=== PATIENT | female | born 2000 | race Two or more races ===

== ENCOUNTER 2024-06-02 15:16 | Emergency (ER) | payer BC ==
[2024-06-02] MEDS ORDERED: Dexamethasone 4 MG TAB ONE (16:10)
[2024-06-02] MEDS ORDERED: Ketorolac Tromethamine 30 MG (1 mL) VIAL ONE (16:10)
[2024-06-02 16:54] LABS: Influenza A by NAA Not Detected (NotDetected); Influenza B by NAA Not Detected (NotDetected); SARS-CoV-2 NAA Rapid Test DETECTED (NotDetected)
== END 2024-06-02 17:21 | disposition home or self-care (01) ==
LOC: CSHERS 15:16
DX: U07.1 COVID-19 (principal)
CPT/HCPCS: 96372; 99283; J1885; J8540